=== PATIENT | male | born 1950 | race African-American/Black ===

== ENCOUNTER 2023-06-18 16:33 | Inpatient (IN) | payer MEDICARE, OTHER ==
[~2023-06-18] VITALS: Ht 185.4 cm; Wt 81.6 kg
[2023-06-18] MEDS ORDERED: QUET25TA PO (17:25)
[2023-06-18] MEDS ORDERED: BISA10SU61 RC (17:25)
[2023-06-18] MEDS ORDERED: BLOO-668 IN (17:25)
[2023-06-18] MEDS ORDERED: DOCU250C14 PO (17:25)
[2023-06-18] MEDS ORDERED: ACET325T53 PO (17:25)
[2023-06-18] MEDS ORDERED: FAMO-132 PO (17:25)
[2023-06-18] MEDS ORDERED: GABA-532 PO (17:25)
[2023-06-18] MEDS ORDERED: LEVE750T4 PO (17:25)
[2023-06-18] MEDS ORDERED: GLUC1AUT IM (17:25)
[2023-06-18] MEDS ORDERED: MAGN400O6 PO (17:25)
[2023-06-18] MEDS ORDERED: NA P133E RC (17:25)
[2023-06-18] MEDS ORDERED: LISI10TA29 PO (17:25)
[2023-06-18] MEDS ORDERED: LATA2.5D15 EACHEYE (17:25)
[2023-06-18] MEDS ORDERED: MULT-594 PO (17:25)
[2023-06-18] MEDS ORDERED: MAGNESIUM HYDROXIDE 30 ML LIQUID UDC PO PRN ×2 (17:45→18:00)
[2023-06-18] MEDS ORDERED: REMEDY ESSENTIAL ZINC PASTE 113 GM TP PRN (18:00)
[2023-06-18] MEDS ORDERED: ONDANSETRON 4 MG/2 ML VIAL IV PRN (18:00)
[2023-06-18] MEDS ORDERED: ACETAMINOPHEN 325 MG TABLET PO PRN (18:00)
[2023-06-18] MEDS ORDERED: DEXTROSE 50% 50 ML DISP.SYRIN IV PRN (18:00)
[2023-06-18 18:04] LABS: BASOPHILS % (AUTO) 0.2 % (0.0-2.0); EOSINOPHILS # (AUTO) 0.2 K/uL (0.0-0.7); EOSINOPHILS % (AUTO) 2.6 % (0.0-7.0); HEMATOCRIT 40.1 % (36.7-47.1); HEMOGLOBIN 13.5 g/dL (12.5-16.3); LYMPHOCYTES # (AUTO) 1.5 K/uL (0.8-4.8); MEAN CORPUSCULAR HEMOGLOBIN 30.5 uug (23.8-33.4); MEAN CORPUSCULAR HGB CONC 34 g/dL (32.5-36.3); MEAN CORPUSCULAR VOLUME 90.7 fL (73.0-96.2); MONOCYTES # (AUTO) 0.4 K/uL (0.1-1.30); MONOCYTES % (AUTO) 6.2 % (0.0-11.0); NEUTROPHILS # (AUTO) 4.5 K/uL (1.8-8.9); PLATELET COUNT (AUTO) 270 K/uL (152-348); RED BLOOD CELL COUNT(AUTO) 4.43 MIL/uL (4.06-5.63); RED CELL DISTRIBUTION WIDTH 12.7 % (12.1-16.2); WHITE BLOOD COUNT (AUTO) 6.6 K/uL (3.6-10.2)
[2023-06-18 18:05] LABS: DIFFERENTIAL COMMENT 1
[2023-06-18 18:15] LABS: CALCIUM 9.2 mg/dL (8.5-10.1); CARBON DIOXIDE 29 mmol/L (21-32); CHLORIDE 101 mmol/L (98-107); CREATININE 1.4 mg/dL (0.6-1.3); GLUCOSE 197 mg/dL (74-106); POTASSIUM 4.3 mmol/L (3.5-5.1); SODIUM SERUM 140 mmol/L (136-145); UREA NITROGEN, BLOOD 27 mg/dL (7-18)
[2023-06-18 18:29] LABS: ALANINE AMINOTRANSFERASE 27 U/L (16-63); ALBUMIN 3.4 g/dL (3.4-5.0); ALKALINE PHOSPHATASE 116 U/L (50-136); ASPARTATE AMINOTRANSFERASE 21 U/L (15-37); BILIRUBIN,DIRECT < 0.1 mg/dL (0.0-0.2); BILIRUBIN,TOTAL 0.1 mg/dL (0.2-1.0); ETHANOL < 3 MG/DL (0-10); TOTAL PROTEIN, SERUM 6.9 g/dL (6.4-8.2)
[2023-06-18 18:30] LABS: ACETAMINOPHEN < 2.0 ug/mL (10-30)
[2023-06-18 18:36] LABS: THYROID STIMULATING HORMONE 0.825 mIU/mL (0.358-3.740)
[2023-06-18 18:45] LABS: AMMONIA < 10 umol/L (11-32)
[2023-06-18] MEDS ORDERED: OLANZAPINE 10 MG VIAL IM ONE ×4 (19:15→20:19)
[2023-06-18 19:49] LABS: *BILIRUBIN,URIN NEGATIVE (NEGATIVE); *CLARITY,URINE CLEAR (CLEAR); *COLOR,URINE YELLOW (YELLOW); *KETONES,URINE NEGATIVE (NEGATIVE); *PROTEIN,URINE NEGATIVE (NEGATIVE); *UROBILINOGEN,URINE 0.2 E.U./dl (NORMAL); LEUKOCYTE ESTERASE ,URINE 1+ (NEGATIVE); NITRITE, URINE NEGATIVE (NEGATIVE); UGLUCOSE NEGATIVE (NEGATIVE)
[2023-06-18 19:52] LABS: *BLOOD, URINE 1+ (NEGATIVE)
[2023-06-18 20:00] LABS: *AMPHETAMINE, URINE NEGATIVE (NEGATIVE); *BARBITURATE, URINE NEGATIVE (NEGATIVE); *BENZODIAZEPINE, URINE NEGATIVE (NEGATIVE); *CANNABINOID, URINE NEGATIVE (NEGATIVE); *COCCAINE, URINE NEGATIVE (NEGATIVE); *OPIATE, URINE NEGATIVE (NEGATIVE); *PHENCYCLIDINE SCREEN,URINE NEGATIVE (NEGATIVE); FENTANYL, URINE NEGATIVE (NEGATIVE)
[2023-06-18] MEDS: QUETIAPINE FUMARATE 25 MG TABLET PO SCH (21:42)
[2023-06-18] MEDS: BLOOD SUGAR DIAGNOSTIC 1 EACH STRIP VI SCH (21:42)
[2023-06-18] MEDS ORDERED: INSULIN GLARGINE,HUM 300 UNITS/3 ML CARTRIDGE SQ ONE (21:45)
[2023-06-18] MEDS: INSULIN REGULAR, HUMAN 300 UNIT/3 ML VIAL SQ PRN (21:48)
[2023-06-19] MEDS ORDERED: ACETAMINOPHEN 325 MG TABLET PO PRN (01:15)
[2023-06-19] MEDS ORDERED: OLANZAPINE 10 MG VIAL IM ONE ×2 (02:00→02:03)
[2023-06-19] MEDS: BLOOD SUGAR DIAGNOSTIC 1 EACH STRIP VI SCH ×4 (08:00→21:00)
[2023-06-19 08:43] LABS: BASOPHILS % (AUTO) 0.2 % (0.0-2.0); EOSINOPHILS # (AUTO) 0.2 K/uL (0.0-0.7); EOSINOPHILS % (AUTO) 2.7 % (0.0-7.0); HEMATOCRIT 42.1 % (36.7-47.1); HEMOGLOBIN 14.3 g/dL (12.5-16.3); LYMPHOCYTES # (AUTO) 1.8 K/uL (0.8-4.8); LYMPHOCYTES % (AUTO) 31.6 % (20.5-51.5); MEAN CORPUSCULAR HEMOGLOBIN 31.1 uug (23.8-33.4); MEAN CORPUSCULAR HGB CONC 34 g/dL (32.5-36.3); MEAN CORPUSCULAR VOLUME 91.6 fL (73.0-96.2); MONOCYTES # (AUTO) 0.5 K/uL (0.1-1.30); MONOCYTES % (AUTO) 8.2 % (0.0-11.0); NEUTROPHILS # (AUTO) 3.2 K/uL (1.8-8.9); NEUTROPHILS % (AUTO) 57.3 % (38.5-71.5); PLATELET COUNT (AUTO) 259 K/uL (152-348); RED CELL DISTRIBUTION WIDTH 13.1 % (12.1-16.2); WHITE BLOOD COUNT (AUTO) 5.6 K/uL (3.6-10.2)
[2023-06-19 08:51] LABS: DIFFERENTIAL COMMENT 1
[2023-06-19 08:59] LABS: CALCIUM 8.7 mg/dL (8.5-10.1); CARBON DIOXIDE 27 mmol/L (21-32); CHLORIDE 105 mmol/L (98-107); CREATININE 1.4 mg/dL (0.6-1.3); GLUCOSE 126 mg/dL (74-106); MAGNESIUM 2.1 mg/dL (1.8-2.4); PHOSPHOROUS 3.2 mg/dL (2.5-4.9); POTASSIUM 4.5 mmol/L (3.5-5.1); SODIUM SERUM 139 mmol/L (136-145); UREA NITROGEN, BLOOD 22 mg/dL (7-18)
[2023-06-19] MEDS ORDERED: BISACODYL 10 MG SUPP.RECT RC SCH (09:00)
[2023-06-19] MEDS ORDERED: FLEET ENEMA 133 ML BOTTLE RC SCH (09:00)
[2023-06-19] MEDS: levETIRAcetam 250 MG TABLET PO SCH ×2 (11:41→21:45)
[2023-06-19] MEDS: DOCUSATE SODIUM 250 MG CAPSULE PO SCH (11:41)
[2023-06-19] MEDS: LISINOPRIL 10 MG TABLET PO SCH (11:43)
[2023-06-19] MEDS: FAMOTIDINE 20 MG TABLET PO SCH (11:45)
[2023-06-19] MEDS: GABAPENTIN 100 MG CAPSULE PO SCH ×3 (11:48→17:19)
[2023-06-19] MEDS ORDERED: INSU100V7 SQ (13:46)
[2023-06-19] MEDS: INSULIN REGULAR, HUMAN 300 UNIT/3 ML VIAL SQ PRN (18:00)
[2023-06-19] MEDS ORDERED: HALOPERIDOL DECANOATE 50 MG/1 ML AMPUL IM ONE (18:45)
[2023-06-19] MEDS: LORAZEPAM 2 MG/1 ML VIAL IV PRN (18:57)
[2023-06-19] MEDS ORDERED: HALOPERIDOL LACTATE 5 MG/1 ML VIAL IM ONE ×2 (19:00→20:45)
[2023-06-19 20:00] VITALS: BP 110/58; TEMP 98; O2SAT 94
[2023-06-19] MEDS: QUETIAPINE FUMARATE 25 MG TABLET PO SCH (21:45)
[2023-06-20 07:00] LABS: BASOPHILS % (AUTO) 0.2 % (0.0-2.0); EOSINOPHILS # (AUTO) 0.2 K/uL (0.0-0.7); EOSINOPHILS % (AUTO) 3.6 % (0.0-7.0); HEMATOCRIT 42.3 % (36.7-47.1); HEMOGLOBIN 14.5 g/dL (12.5-16.3); LYMPHOCYTES # (AUTO) 2.2 K/uL (0.8-4.8); MEAN CORPUSCULAR HEMOGLOBIN 31.3 uug (23.8-33.4); MEAN CORPUSCULAR HGB CONC 34 g/dL (32.5-36.3); MEAN CORPUSCULAR VOLUME 90.9 fL (73.0-96.2); MONOCYTES # (AUTO) 0.4 K/uL (0.1-1.30); MONOCYTES % (AUTO) 7.6 % (0.0-11.0); NEUTROPHILS # (AUTO) 2.8 K/uL (1.8-8.9); NEUTROPHILS % (AUTO) 49.6 % (38.5-71.5); PLATELET COUNT (AUTO) 269 K/uL (152-348); RED BLOOD CELL COUNT(AUTO) 4.65 MIL/uL (4.06-5.63); RED CELL DISTRIBUTION WIDTH 12.8 % (12.1-16.2); WHITE BLOOD COUNT (AUTO) 5.6 K/uL (3.6-10.2)
[2023-06-20] MEDS: BLOOD SUGAR DIAGNOSTIC 1 EACH STRIP VI SCH ×4 (07:05→20:59)
[2023-06-20 07:06] LABS: DIFFERENTIAL COMMENT 1
[2023-06-20 07:15] LABS: ALANINE AMINOTRANSFERASE 20 U/L (16-63); ALBUMIN 3.5 g/dL (3.4-5.0); ALKALINE PHOSPHATASE 106 U/L (50-136); ASPARTATE AMINOTRANSFERASE 17 U/L (15-37); BILIRUBIN,TOTAL 0.3 mg/dL (0.2-1.0); CALCIUM 9.3 mg/dL (8.5-10.1); CARBON DIOXIDE 29 mmol/L (21-32); CHLORIDE 104 mmol/L (98-107); CREATINE KINASE, TOTAL 530 U/L (39-308); CREATININE 1.4 mg/dL (0.6-1.3); GLUCOSE 126 mg/dL (74-106); MAGNESIUM 2.1 mg/dL (1.8-2.4); PHOSPHOROUS 3.5 mg/dL (2.5-4.9); POTASSIUM 4.5 mmol/L (3.5-5.1); SODIUM SERUM 140 mmol/L (136-145); UREA NITROGEN, BLOOD 19 mg/dL (7-18)
[2023-06-20] MEDS: LISINOPRIL 10 MG TABLET PO SCH (11:06)
[2023-06-20] MEDS: levETIRAcetam 250 MG TABLET PO SCH ×2 (11:06→20:54)
[2023-06-20] MEDS: FAMOTIDINE 20 MG TABLET PO SCH (11:07)
[2023-06-20] MEDS: DOCUSATE SODIUM 250 MG CAPSULE PO SCH (11:07)
[2023-06-20] MEDS: GABAPENTIN 100 MG CAPSULE PO SCH ×3 (11:07→17:41)
[2023-06-20 11:30] VITALS: BP 135/88; TEMP 98; O2SAT 99
[2023-06-20 16:52] VITALS: BP 107/56; TEMP 98.7; O2SAT 97
[2023-06-20] MEDS: INSULIN REGULAR, HUMAN 300 UNIT/3 ML VIAL SQ PRN (17:46)
[2023-06-20 20:00] VITALS: BP 101/50; TEMP 98.6; O2SAT 98
[2023-06-20] MEDS: QUETIAPINE FUMARATE 25 MG TABLET PO SCH (20:54)
[2023-06-20] MEDS: MIRTAZAPINE 15 MG TABLET PO SCH (20:54)
[2023-06-20] MEDS: INSULIN REGULAR, HUMAN 300 UNITS/3 ML VIAL SQ PRN (21:00)
[2023-06-20] MEDS: LORAZEPAM 2 MG/1 ML VIAL IV PRN (21:47)
[2023-06-21 05:54] VITALS: BP 117/66; TEMP 97.8; O2SAT 99
[2023-06-21 06:06] LABS: PTH, INTACT 10 pg/mL (15-65)
[2023-06-21] MEDS: BLOOD SUGAR DIAGNOSTIC 1 EACH STRIP VI SCH ×4 (07:52→20:13)
[2023-06-21 08:05] LABS: A/G RATIO 1.1 (0.7-1.7); ALBUMIN 3.5 g/dL (2.9-4.4); ALPHA-1-GLOBULIN 0.2 g/dL (0.0-0.4); ALPHA-2-GLOBULIN 0.8 g/dL (0.4-1.0); GAMMA GLOBULIN 1.3 g/dL (0.4-1.8); GLOBULIN, TOTAL 3.3 g/dL (2.2-3.9); M-SPIKE Not Observed g/dL (Not Observed)
[2023-06-21] MEDS ORDERED: HALOPERIDOL LACTATE 5 MG/1 ML VIAL IM PRN (08:15)
[2023-06-21] MEDS: GABAPENTIN 100 MG CAPSULE PO SCH ×3 (09:00→17:42)
[2023-06-21] MEDS: DOCUSATE SODIUM 250 MG CAPSULE PO SCH (09:00)
[2023-06-21] MEDS: levETIRAcetam 250 MG TABLET PO SCH ×2 (09:01→20:08)
[2023-06-21] MEDS: FAMOTIDINE 20 MG TABLET PO SCH (09:01)
[2023-06-21] MEDS: LISINOPRIL 10 MG TABLET PO SCH (09:03)
[2023-06-21 11:58] VITALS: BP 117/55; TEMP 97.9; O2SAT 97
[2023-06-21 15:51] VITALS: BP 139/74; TEMP 98.2; O2SAT 100
[2023-06-21] MEDS: INSULIN REGULAR, HUMAN 300 UNIT/3 ML VIAL SQ PRN ×2 (17:44→20:17)
[2023-06-21 20:00] VITALS: BP 119/62; TEMP 98.1; O2SAT 97
[2023-06-21] MEDS: MIRTAZAPINE 15 MG TABLET PO SCH (20:08)
[2023-06-21] MEDS: QUETIAPINE FUMARATE 25 MG TABLET PO SCH (20:08)
[2023-06-21] MEDS: INSULIN REGULAR, HUMAN 300 UNITS/3 ML VIAL SQ PRN (20:17)
[2023-06-22 04:00] VITALS: BP 120/65; TEMP 98.2; O2SAT 97
[2023-06-22] MEDS: BLOOD SUGAR DIAGNOSTIC 1 EACH STRIP VI SCH ×2 (06:56→11:30)
[2023-06-22 08:03] LABS: BASOPHILS % (AUTO) 0.2 % (0.0-2.0); EOSINOPHILS # (AUTO) 0.3 K/uL (0.0-0.7); HEMATOCRIT 39.5 % (36.7-47.1); HEMOGLOBIN 13.5 g/dL (12.5-16.3); LYMPHOCYTES # (AUTO) 2.3 K/uL (0.8-4.8); LYMPHOCYTES % (AUTO) 34.8 % (20.5-51.5); MEAN CORPUSCULAR HEMOGLOBIN 31.1 uug (23.8-33.4); MEAN CORPUSCULAR HGB CONC 34 g/dL (32.5-36.3); MEAN CORPUSCULAR VOLUME 91.1 fL (73.0-96.2); MONOCYTES # (AUTO) 0.6 K/uL (0.1-1.30); MONOCYTES % (AUTO) 9.2 % (0.0-11.0); NEUTROPHILS # (AUTO) 3.4 K/uL (1.8-8.9); NEUTROPHILS % (AUTO) 51.8 % (38.5-71.5); PLATELET COUNT (AUTO) 259 K/uL (152-348); RED BLOOD CELL COUNT(AUTO) 4.33 MIL/uL (4.06-5.63); WHITE BLOOD COUNT (AUTO) 6.5 K/uL (3.6-10.2)
[2023-06-22 08:17] LABS: DIFFERENTIAL COMMENT 1
[2023-06-22 08:21] LABS: CALCIUM 8.5 mg/dL (8.5-10.1); CARBON DIOXIDE 27 mmol/L (21-32); CHLORIDE 105 mmol/L (98-107); CREATININE 1.7 mg/dL (0.6-1.3); GLUCOSE 133 mg/dL (74-106); PHOSPHOROUS 3.8 mg/dL (2.5-4.9); POTASSIUM 4.4 mmol/L (3.5-5.1); SODIUM SERUM 139 mmol/L (136-145); UREA NITROGEN, BLOOD 25 mg/dL (7-18)
[2023-06-22] MEDS ORDERED: MIRT-121 PO (09:04)
[2023-06-22 09:17] LABS: MAGNESIUM 2.1 mg/dL (1.8-2.4)
[2023-06-22] MEDS: FAMOTIDINE 20 MG TABLET PO SCH (09:17)
[2023-06-22] MEDS: LISINOPRIL 10 MG TABLET PO SCH (09:17)
[2023-06-22] MEDS: GABAPENTIN 100 MG CAPSULE PO SCH (09:17)
[2023-06-22] MEDS: DOCUSATE SODIUM 250 MG CAPSULE PO SCH (09:17)
[2023-06-22] MEDS: levETIRAcetam 250 MG TABLET PO SCH (09:17)
[2023-06-22 11:57] VITALS: BP 110/63; TEMP 97.5; O2SAT 98
== END 2023-06-22 12:25 | DRG 682 ==
LOC: ER 16:33 → TRANSITION 06-19 00:26 → MEDSURG3 06-19 05:51
PROVIDERS: ADMIT Internal Medicine; ATTEND Internal Medicine
PROC: 05HB33Z Insertion of Infusion Device into Right Basilic Vein, Percutaneous Approach (ICD-10-PCS; principal; 2023-06-19)
DX: N17.0 Acute kidney failure with tubular necrosis (principal); G93.41 Metabolic encephalopathy; I67.82 Cerebral ischemia; R62.7 Adult failure to thrive; Z68.25 Body mass index [BMI] 25.0-25.9, adult; F25.9 Schizoaffective disorder, unspecified; R73.03 Prediabetes; G40.909 Epilepsy, unspecified, not intractable, without status epilepticus; G62.9 Polyneuropathy, unspecified; I12.9 Hypertensive chronic kidney disease with stage 1 through stage 4 chronic kidney disease, or unspecified chronic kidney disease; N18.9 Chronic kidney disease, unspecified; Z79.899 Other long term (current) drug therapy
CPT/HCPCS: 36415; 70450; 71045; 76770; 83605; 83735; 83970; 84100; 84155; 84165; 84443; 84484; 85025; 85730; 87040; 93005; A4663; G0378; G0480; J1630; J1815; J2060; J2358

== ENCOUNTER 2023-09-27 18:24 | Inpatient (IN) | payer MEDICARE, OTHER ==
[~2023-09-27] VITALS: Ht 177.8 cm; Wt 94.8 kg
[~2023-09-27 18:24] MED LIST: ACET325T53 PO; BISA10SU61 RC; BLOO-668 IN; DOCU250C14 PO; FAMO-132 PO; GABA-532 PO; GLUC1AUT IM; INSU100V7 SQ; LATA2.5D15 EACHEYE; LEVE750T4 PO; LISI10TA29 PO; MAGN400O6 PO; MIRT-121 PO; MULT-594 PO; NA P133E RC; QUET25TA PO
[2023-09-27 18:52] LABS: BASOPHILS # (AUTO) 0.1 K/UL (0.0-0.2); BASOPHILS % (AUTO) 1.7 % (0.0-2.0); EOSINOPHILS # (AUTO) 0.1 K/uL (0.0-0.7); EOSINOPHILS % (AUTO) 1.9 % (0.0-7.0); HEMATOCRIT 37.5 % (36.7-47.1); HEMOGLOBIN 12.9 g/dL (12.5-16.3); LYMPHOCYTES # (AUTO) 1.2 K/uL (0.8-4.8); LYMPHOCYTES % (AUTO) 19.3 % (20.5-51.5); MEAN CORPUSCULAR HEMOGLOBIN 30.8 uug (23.8-33.4); MEAN CORPUSCULAR HGB CONC 34 g/dL (32.5-36.3); MEAN CORPUSCULAR VOLUME 89.5 fL (73.0-96.2); MONOCYTES # (AUTO) 0.3 K/uL (0.1-1.30); MONOCYTES % (AUTO) 5.5 % (0.0-11.0); NEUTROPHILS # (AUTO) 4.5 K/uL (1.8-8.9); NEUTROPHILS % (AUTO) 71.6 % (38.5-71.5); PLATELET COUNT (AUTO) 275 K/uL (152-348); RED BLOOD CELL COUNT(AUTO) 4.18 MIL/uL (4.06-5.63); RED CELL DISTRIBUTION WIDTH 13.1 % (12.1-16.2); WHITE BLOOD COUNT (AUTO) 6.2 K/uL (3.6-10.2)
[2023-09-27] MEDS ORDERED: ONDANSETRON HCL 4 MG TABLET PO ONE (19:00)
[2023-09-27 19:10] LABS: DIFFERENTIAL COMMENT 1
[2023-09-27 19:22] LABS: ETHANOL < 3 MG/DL (0-10)
[2023-09-27 19:23] LABS: CARBON DIOXIDE 27 mmol/L (21-32); CHLORIDE 102 mmol/L (98-107); CREATININE 1.4 mg/dL (0.6-1.3); GLUCOSE 219 mg/dL (74-106); POTASSIUM 4.2 mmol/L (3.5-5.1); SODIUM SERUM 137 mmol/L (136-145); UREA NITROGEN, BLOOD 23 mg/dL (7-18)
[2023-09-27 19:28] LABS: ALANINE AMINOTRANSFERASE 40 U/L (16-63); ALBUMIN 3.3 g/dL (3.4-5.0); ALKALINE PHOSPHATASE 99 U/L (50-136); ASPARTATE AMINOTRANSFERASE 20 U/L (15-37); BILIRUBIN,TOTAL 0.3 mg/dL (0.2-1.0); TOTAL PROTEIN, SERUM 6.8 g/dL (6.4-8.2)
[2023-09-27 19:46] LABS: ACETAMINOPHEN 9.9 ug/mL (10-30); BILIRUBIN,DIRECT < 0.1 mg/dL (0.0-0.2)
[2023-09-27] MEDS ORDERED: OLANZAPINE 10 MG VIAL IM ONE ×2 (21:32→21:45)
[2023-09-27 22:36] LABS: *BILIRUBIN,URIN NEGATIVE (NEGATIVE); *BLOOD, URINE 1+ (NEGATIVE); *CLARITY,URINE CLEAR (CLEAR); *COLOR,URINE YELLOW (YELLOW); *KETONES,URINE NEGATIVE (NEGATIVE); *PROTEIN,URINE 1+ (NEGATIVE); *UROBILINOGEN,URINE 0.2 E.U./dl (NORMAL); LEUKOCYTE ESTERASE ,URINE 2+ (NEGATIVE); NITRITE, URINE NEGATIVE (NEGATIVE); UGLUCOSE NEGATIVE (NEGATIVE)
[2023-09-27] MEDS ORDERED: glargine insulin SUBCUT (22:37)
[2023-09-27] MEDS ORDERED: NA P133E RC (22:37)
[2023-09-27] MEDS ORDERED: LEVE500S9 PO (22:37)
[2023-09-27] MEDS ORDERED: BISA10SU61 RC (22:37)
[2023-09-27 22:51] LABS: *AMPHETAMINE, URINE NEGATIVE (NEGATIVE); *BARBITURATE, URINE NEGATIVE (NEGATIVE); *BENZODIAZEPINE, URINE NEGATIVE (NEGATIVE); *CANNABINOID, URINE NEGATIVE (NEGATIVE); *COCCAINE, URINE NEGATIVE (NEGATIVE); *OPIATE, URINE NEGATIVE (NEGATIVE); *PHENCYCLIDINE SCREEN,URINE NEGATIVE (NEGATIVE)
[2023-09-27 22:57] LABS: FENTANYL, URINE NEGATIVE (NEGATIVE)
[2023-09-27 23:03] LABS: BACTERIA,URINE MANY /HPF (NONE SEEN)
[2023-09-27 23:04] LABS: SQUAMOUS EPITHELIAL CELL,UR FEW /HPF (NONE SEEN)
[2023-09-27] MEDS ORDERED: CEphaleXIN 500 MG CAPSULE PO ONE (23:15)
[2023-09-28 01:39] VITALS: BP 126/76; TEMP 98.2; O2SAT 99
[2023-09-28] MEDS ORDERED: MAGNESIUM HYDROXIDE 30 ML LIQUID UDC PO PRN (02:00)
[2023-09-28] MEDS ORDERED: MAG HYDROX/AL HYDROX/SIMETH 30 ML LIQUID UDC PO PRN (02:00)
[2023-09-28] MEDS ORDERED: ACETAMINOPHEN 325 MG TABLET PO PRN ×2 (02:00→16:45)
[2023-09-28] MEDS ORDERED: BLOOD SUGAR DIAGNOSTIC 1 EACH STRIP VI ONE (02:00)
[2023-09-28 07:54] VITALS: BP 131/57; TEMP 98.3; O2SAT 98
[2023-09-28] MEDS: OLANZAPINE 2.5 MG TABLET PO SCH ×2 (10:43→16:56)
[2023-09-28] MEDS: DIVALPROEX SPRINKLE 125 MG CAP.SPRINK PO SCH ×2 (10:43→21:33)
[2023-09-28] MEDS: GABAPENTIN 100 MG CAPSULE PO SCH ×3 (10:43→16:55)
[2023-09-28 16:20] VITALS: BP 164/85; TEMP 98.1; O2SAT 98
[2023-09-28] MEDS ORDERED: DEXTROSE 50% 50 ML DISP.SYRIN IV PRN (16:30)
[2023-09-28] MEDS ORDERED: MAGNESIUM HYDROXIDE 30 ML LIQUID UDC PO SCH (16:45)
[2023-09-28] MEDS ORDERED: BISACODYL 10 MG SUPP.RECT RC PRN (16:45)
[2023-09-28] MEDS ORDERED: FLEET ENEMA 133 ML BOTTLE RC PRN (16:45)
[2023-09-28] MEDS ORDERED: GABAPENTIN 100 MG CAPSULE PO SCH (17:00)
[2023-09-28] MEDS: BLOOD SUGAR DIAGNOSTIC 1 EACH STRIP VI SCH ×2 (17:11→20:30)
[2023-09-28] MEDS: levETIRAcetam 250 MG TABLET PO SCH (18:44)
[2023-09-28 20:00] VITALS: BP 112/53; TEMP 97.5; O2SAT 96
[2023-09-28] MEDS: LORAZEPAM 1 MG TABLET PO PRN (20:01)
[2023-09-28] MEDS: CEphaleXIN 500 MG CAPSULE PO SCH (21:33)
[2023-09-28] MEDS: INSULIN REGULAR, HUMAN 300 UNIT/3 ML VIAL SQ PRN (21:35)
[2023-09-28] MEDS: INSULIN GLARGINE,HUM 300 UNITS/3 ML CARTRIDGE SQ SCH (21:38)
[2023-09-28] MEDS ORDERED: CEphaleXIN 500 MG CAPSULE PO SCH (22:00)
[2023-09-28] MEDS: ZOLPIDEM 5 MG TABLET PO PRN (22:22)
[2023-09-29] MEDS: BLOOD SUGAR DIAGNOSTIC 1 EACH STRIP VI SCH ×4 (07:05→20:20)
[2023-09-29 08:12] VITALS: BP 137/59; TEMP 98.2; O2SAT 99
[2023-09-29] MEDS: levETIRAcetam 250 MG TABLET PO SCH ×2 (09:03→17:16)
[2023-09-29] MEDS: LISINOPRIL 10 MG TABLET PO SCH (09:04)
[2023-09-29] MEDS: DIVALPROEX SPRINKLE 125 MG CAP.SPRINK PO SCH ×2 (09:05→20:23)
[2023-09-29] MEDS: CEphaleXIN 500 MG CAPSULE PO SCH ×2 (09:05→20:23)
[2023-09-29] MEDS: DOCUSATE SODIUM 250 MG CAPSULE PO SCH (09:05)
[2023-09-29] MEDS: GABAPENTIN 100 MG CAPSULE PO SCH ×3 (09:06→17:16)
[2023-09-29] MEDS: MULTIVITAMINS,THERAPEUTIC TABLET PO SCH (09:06)
[2023-09-29] MEDS: FAMOTIDINE 20 MG TABLET PO SCH (09:06)
[2023-09-29] MEDS: OLANZAPINE 2.5 MG TABLET PO SCH ×2 (09:10→17:17)
[2023-09-29 16:22] VITALS: BP 126/76; TEMP 98; O2SAT 99
[2023-09-29 19:32] VITALS: BP 117/52; TEMP 98; O2SAT 98
[2023-09-29] MEDS: INSULIN REGULAR, HUMAN 300 UNITS/3 ML VIAL SQ PRN (20:26)
[2023-09-29] MEDS: LORAZEPAM 1 MG TABLET PO PRN (20:31)
[2023-09-29] MEDS: INSULIN GLARGINE,HUM 300 UNITS/3 ML CARTRIDGE SQ SCH (20:31)
[2023-09-29] MEDS: ZOLPIDEM 5 MG TABLET PO PRN (21:55)
[2023-09-30] MEDS: BLOOD SUGAR DIAGNOSTIC 1 EACH STRIP VI SCH ×4 (07:30→20:59)
[2023-09-30 08:00] VITALS: BP 130/56; TEMP 97.5; O2SAT 99
[2023-09-30] MEDS: GABAPENTIN 100 MG CAPSULE PO SCH ×3 (08:20→18:33)
[2023-09-30] MEDS: CEphaleXIN 500 MG CAPSULE PO SCH ×3 (08:20→20:37)
[2023-09-30] MEDS: MULTIVITAMINS,THERAPEUTIC TABLET PO SCH (08:20)
[2023-09-30] MEDS: FAMOTIDINE 20 MG TABLET PO SCH (08:20)
[2023-09-30] MEDS: DOCUSATE SODIUM 250 MG CAPSULE PO SCH (08:20)
[2023-09-30] MEDS: DIVALPROEX SPRINKLE 125 MG CAP.SPRINK PO SCH ×2 (08:20→20:37)
[2023-09-30] MEDS: LISINOPRIL 10 MG TABLET PO SCH (08:20)
[2023-09-30] MEDS: levETIRAcetam 250 MG TABLET PO SCH ×2 (08:35→18:34)
[2023-09-30] MEDS: OLANZAPINE 2.5 MG TABLET PO SCH ×2 (08:40→18:34)
[2023-09-30] MEDS: INSULIN REGULAR, HUMAN 300 UNIT/3 ML VIAL SQ PRN (12:40)
[2023-09-30 16:00] VITALS: BP 124/73; TEMP 98.8; O2SAT 98
[2023-09-30 20:00] VITALS: BP 151/89; TEMP 98; O2SAT 96
[2023-09-30] MEDS: LORAZEPAM 1 MG TABLET PO PRN (20:00)
[2023-09-30] MEDS: INSULIN REGULAR, HUMAN 300 UNITS/3 ML VIAL SQ PRN (21:01)
[2023-09-30] MEDS: INSULIN GLARGINE,HUM 300 UNITS/3 ML CARTRIDGE SQ SCH (21:02)
[2023-09-30] MEDS: ZOLPIDEM 5 MG TABLET PO PRN (22:27)
[2023-10-01] MEDS: LORAZEPAM 1 MG TABLET PO PRN ×2 (04:33→12:43)
[2023-10-01] MEDS: BLOOD SUGAR DIAGNOSTIC 1 EACH STRIP VI SCH ×4 (06:28→21:56)
[2023-10-01 08:35] LABS: CALCIUM 9.3 mg/dL (8.5-10.1); CREATININE 1.3 mg/dL (0.6-1.3)
[2023-10-01 08:53] VITALS: BP 111/44; TEMP 98; O2SAT 96
[2023-10-01] MEDS: FAMOTIDINE 20 MG TABLET PO SCH (08:59)
[2023-10-01] MEDS: GABAPENTIN 100 MG CAPSULE PO SCH ×3 (08:59→16:59)
[2023-10-01] MEDS: DOCUSATE SODIUM 250 MG CAPSULE PO SCH (08:59)
[2023-10-01] MEDS: MULTIVITAMINS,THERAPEUTIC TABLET PO SCH (08:59)
[2023-10-01] MEDS: CEphaleXIN 500 MG CAPSULE PO SCH (09:01)
[2023-10-01] MEDS: levETIRAcetam 250 MG TABLET PO SCH ×2 (09:01→16:59)
[2023-10-01] MEDS: DIVALPROEX SPRINKLE 125 MG CAP.SPRINK PO SCH ×2 (09:01→21:37)
[2023-10-01] MEDS: LISINOPRIL 10 MG TABLET PO SCH (09:02)
[2023-10-01] MEDS: OLANZAPINE 2.5 MG TABLET PO SCH ×2 (09:19→16:59)
[2023-10-01 15:38] VITALS: BP 110/57; TEMP 98; O2SAT 98
[2023-10-01 20:00] VITALS: BP 141/82; TEMP 97.8; O2SAT 100
[2023-10-01] MEDS: NITROFURANTOIN/NITROFURAN MAC 100 MG CAPSULE PO SCH (21:37)
[2023-10-01] MEDS: INSULIN GLARGINE,HUM 300 UNITS/3 ML CARTRIDGE SQ SCH (21:56)
[2023-10-02] MEDS: BLOOD SUGAR DIAGNOSTIC 1 EACH STRIP VI SCH ×4 (07:15→21:00)
[2023-10-02 07:58] VITALS: BP 141/72; TEMP 98.4; O2SAT 98
[2023-10-02] MEDS: OLANZAPINE 2.5 MG TABLET PO SCH ×2 (09:28→16:39)
[2023-10-02] MEDS: NITROFURANTOIN/NITROFURAN MAC 100 MG CAPSULE PO SCH ×2 (09:28→21:00)
[2023-10-02] MEDS: levETIRAcetam 250 MG TABLET PO SCH ×2 (09:28→16:39)
[2023-10-02] MEDS: FAMOTIDINE 20 MG TABLET PO SCH (09:28)
[2023-10-02] MEDS: GABAPENTIN 100 MG CAPSULE PO SCH ×3 (09:28→16:39)
[2023-10-02] MEDS: LISINOPRIL 10 MG TABLET PO SCH (09:29)
[2023-10-02] MEDS: DOCUSATE SODIUM 250 MG CAPSULE PO SCH (09:33)
[2023-10-02] MEDS: MULTIVITAMINS,THERAPEUTIC TABLET PO SCH (09:33)
[2023-10-02] MEDS: DIVALPROEX SPRINKLE 125 MG CAP.SPRINK PO SCH ×2 (09:33→21:00)
[2023-10-02] MEDS: INSULIN REGULAR, HUMAN 300 UNIT/3 ML VIAL SQ PRN ×2 (11:54→14:45)
[2023-10-02 15:32] VITALS: BP 120/66; TEMP 98.4; O2SAT 99
[2023-10-02 20:13] VITALS: BP 119/69; TEMP 98.2; O2SAT 98
[2023-10-02] MEDS: INSULIN GLARGINE,HUM 300 UNITS/3 ML CARTRIDGE SQ SCH (21:00)
[2023-10-03] MEDS: BLOOD SUGAR DIAGNOSTIC 1 EACH STRIP VI SCH ×4 (06:33→20:00)
[2023-10-03 08:06] VITALS: BP 153/84; TEMP 98; O2SAT 98
[2023-10-03] MEDS: GABAPENTIN 100 MG CAPSULE PO SCH ×3 (08:37→17:58)
[2023-10-03] MEDS: levETIRAcetam 250 MG TABLET PO SCH ×2 (08:37→17:59)
[2023-10-03] MEDS: NITROFURANTOIN/NITROFURAN MAC 100 MG CAPSULE PO SCH ×2 (08:38→20:16)
[2023-10-03] MEDS: OLANZAPINE 2.5 MG TABLET PO SCH ×2 (08:39→17:58)
[2023-10-03] MEDS: LISINOPRIL 10 MG TABLET PO SCH (08:39)
[2023-10-03] MEDS: DOCUSATE SODIUM 250 MG CAPSULE PO SCH (08:40)
[2023-10-03] MEDS: MULTIVITAMINS,THERAPEUTIC TABLET PO SCH (08:40)
[2023-10-03] MEDS: FAMOTIDINE 20 MG TABLET PO SCH (08:41)
[2023-10-03] MEDS: GLUCERNA SHAKE 237 ML CAN PO SCH (08:42)
[2023-10-03] MEDS: DIVALPROEX SPRINKLE 125 MG CAP.SPRINK PO SCH ×3 (09:00→17:58)
[2023-10-03 15:27] VITALS: BP 107/62; TEMP 98; O2SAT 96
[2023-10-03 20:08] VITALS: BP 146/72; TEMP 98.1; O2SAT 95
[2023-10-03] MEDS: INSULIN GLARGINE,HUM 300 UNITS/3 ML CARTRIDGE SQ SCH (20:22)
[2023-10-03] MEDS: INSULIN REGULAR, HUMAN 300 UNIT/3 ML VIAL SQ PRN (20:24)
[2023-10-03] MEDS: ZOLPIDEM 5 MG TABLET PO PRN (20:49)
[2023-10-03] MEDS: LORAZEPAM 1 MG TABLET PO PRN (21:51)
[2023-10-04] MEDS: BLOOD SUGAR DIAGNOSTIC 1 EACH STRIP VI SCH ×4 (06:46→22:35)
[2023-10-04 08:33] VITALS: BP 129/69; TEMP 98.2; O2SAT 99
[2023-10-04] MEDS: OLANZAPINE 2.5 MG TABLET PO SCH ×2 (09:50→16:30)
[2023-10-04] MEDS: levETIRAcetam 250 MG TABLET PO SCH ×2 (09:51→16:29)
[2023-10-04] MEDS: FAMOTIDINE 20 MG TABLET PO SCH (09:52)
[2023-10-04] MEDS: DOCUSATE SODIUM 250 MG CAPSULE PO SCH (09:52)
[2023-10-04] MEDS: DIVALPROEX SPRINKLE 125 MG CAP.SPRINK PO SCH ×3 (09:52→16:29)
[2023-10-04] MEDS: LISINOPRIL 10 MG TABLET PO SCH (09:53)
[2023-10-04] MEDS: NITROFURANTOIN/NITROFURAN MAC 100 MG CAPSULE PO SCH ×2 (09:54→22:36)
[2023-10-04] MEDS: MULTIVITAMINS,THERAPEUTIC TABLET PO SCH (09:54)
[2023-10-04] MEDS: GABAPENTIN 100 MG CAPSULE PO SCH ×3 (09:54→16:30)
[2023-10-04] MEDS: GLUCERNA SHAKE 237 ML CAN PO SCH (10:03)
[2023-10-04] MEDS: INSULIN GLARGINE,HUM 300 UNITS/3 ML CARTRIDGE SQ SCH (22:49)
[2023-10-05] MEDS: BLOOD SUGAR DIAGNOSTIC 1 EACH STRIP VI SCH ×3 (06:38→12:33)
[2023-10-05 07:44] VITALS: BP 101/67; TEMP 98.2; O2SAT 97
[2023-10-05 09:00] VITALS: BP 101/67
[2023-10-05] MEDS: LISINOPRIL 10 MG TABLET PO SCH (09:00)
[2023-10-05] MEDS: GLUCERNA SHAKE 237 ML CAN PO SCH (09:00)
[2023-10-05] MEDS: levETIRAcetam 250 MG TABLET PO SCH (09:08)
[2023-10-05] MEDS: FAMOTIDINE 20 MG TABLET PO SCH (09:08)
[2023-10-05] MEDS: NITROFURANTOIN/NITROFURAN MAC 100 MG CAPSULE PO SCH (09:08)
[2023-10-05] MEDS: OLANZAPINE 2.5 MG TABLET PO SCH (09:08)
[2023-10-05] MEDS: DOCUSATE SODIUM 250 MG CAPSULE PO SCH (09:09)
[2023-10-05] MEDS: DIVALPROEX SPRINKLE 125 MG CAP.SPRINK PO SCH ×2 (09:09→12:40)
[2023-10-05] MEDS: MULTIVITAMINS,THERAPEUTIC TABLET PO SCH (09:09)
[2023-10-05] MEDS: GABAPENTIN 100 MG CAPSULE PO SCH ×2 (09:09→12:40)
[2023-10-05] MEDS: LORAZEPAM 1 MG TABLET PO PRN (12:40)
[2023-10-05] MEDS: INSULIN REGULAR, HUMAN 300 UNIT/3 ML VIAL SQ PRN (13:01)
== END 2023-10-05 14:45 | DRG 885 ==
LOC: ER 18:27 → GPS 09-28 01:02
PROVIDERS: ADMIT Psychiatry & Neurology Psychiatry; ATTEND Student in an Organized Health Care Education/Training Program
DX: F25.0 Schizoaffective disorder, bipolar type (principal); N17.0 Acute kidney failure with tubular necrosis; N39.0 Urinary tract infection, site not specified; G93.40 Encephalopathy, unspecified; F03.911 Unspecified dementia, unspecified severity, with agitation; G40.909 Epilepsy, unspecified, not intractable, without status epilepticus; Z79.899 Other long term (current) drug therapy; K21.9 Gastro-esophageal reflux disease without esophagitis; H40.9 Unspecified glaucoma; E11.40 Type 2 diabetes mellitus with diabetic neuropathy, unspecified; Z79.4 Long term (current) use of insulin; I10 Essential (primary) hypertension
CPT/HCPCS: 36415; 80164; 80299; 84443; 85025; C1758; G0480; J1815; J2358; Q0162